=== PATIENT | male | born 1970 | race African-American/Black ===

== ENCOUNTER 2022-06-28 16:55 | Emergency (ER) | payer MEDICAID ==
[~2022-06-28] VITALS: Ht 190.5 cm; Wt 155.0 kg
[~2022-06-28 16:55] MED LIST: AMLODIPINE PO
[2022-06-28 17:46] VITALS: BP 150/93
== END 2022-06-28 19:53 | disposition home or self-care (01) ==
LOC: ER 16:55
DX: G89.29 Other chronic pain (principal); H92.01 Otalgia, right ear; I10 Essential (primary) hypertension
CPT/HCPCS: 99281